=== PATIENT | male | born 1975 | race Caucasian/White ===

== ENCOUNTER 2017-04-10 18:52 | Emergency (ER) | payer BC ==
[2017-04-10 19:05] VITALS: BP 115/69
[2017-04-10] MEDS ORDERED: Ibuprofen TAB* 600 MG PO ONE (19:13)
--- NOTE | 2017-04-10 19:18 | UC ---
Skin Complaint HPI - HPI Summary HPI Summary: skin infection right shoulder and right lower abd x 5 days + pain and tenderness , redness and swelling no fever, no chills hx of MRSA - History of Current Complaint Chief Complaint: UCSkin Time Seen by Provider: 04/10/17 19:03 Stated Complaint: POSSIBLE STAPH INFECTIONS Hx Obtained From: Patient Onset/Duration: Sudden Onset, Lasting Days - 3, Still Present Timing: Constant Onset Severity: Moderate Current Severity: Moderate Location: Discrete - right shoulder / right lower abd Character: Swelling, Pain, Redness, Raised, Painful Aggravating Factor(s): Touch Alleviating Factor(s): Nothing Associated Signs & Symptoms: Positive: Negative. Negative: Fever, Chills - Allergy/Home Medications Allergies/Adverse Reactions: Allergies Allergy/AdvReac Type Severity Reaction Status Date / Time No Known Allergies Allergy Verified 04/10/17 18:58 Review of Systems Constitutional: Negative Eyes: Negative ENT: Negative Respiratory: Negative Is Patient Immunocompromised?: No All Other Systems Reviewed And Are Negative: Yes PMH/Surg Hx/FS Hx/Imm Hx - Additional Past Medical History Additional PMH: hx of MRSA Previously Healthy: Yes - Surgical History Surgical History: None - Family History Known Family History: Negative: Diabetes - Social History Alcohol Use: None Substance Use Type: None Smoking Status (MU): Current Every Day Smoker Type: Cigarettes Amount Used/How Often: 1-2 PPD - Immunization History Most Recent Influenza Vaccination: NOT YET 2016 Physical Exam Triage Information Reviewed: Yes Appearance: Well-Appearing, No Pain Distress, Well-Nourished Vital Signs: Initial Vital Signs Temp 98 F 04/10/17 18:59 Pulse 85 04/10/17 18:59 Resp 16 04/10/17 18:59 BP 115/69 04/10/17 18:59 Pulse Ox 98 04/10/17 18:59 Vital Signs Reviewed: Yes Eyes: Positive: Conjunctiva Clear ENT Exam: Normal ENT: Positive: Normal ENT inspection, Hearing grossly normal, Pharynx normal Neck exam: Normal Neck: Positive: Supple, Nontender, No Lymphadenopathy Respiratory: Positive: Chest non-tender, Lungs clear, Normal breath sounds Cardiovascular: Positive: RRR, No Murmur, Pulses Normal Musculoskeletal Exam: Normal Skin: Positive: Other - + small abscess right shoulder and right lower abd, + erythema, tender, Course/Dx - Diagnoses Provider Diagnoses: skin abscess Discharge - Discharge Plan Condition: Stable Disposition: HOME Prescriptions: Sulfamethox/Trimethoprim DS* [Bactrim DS 800/160 TAB*] 1 tab PO BID #20 tab Patient Education Materials: MRSA (Methicillin-Resistant Staphylococcus Aureus ) (ED), Abscess (ED) Referrals: No Primary Care Phys,NOPCP [Primary Care Provider] - If Needed
== END 2017-04-10 19:22 | disposition home or self-care (01) ==
LOC: UCCORT 18:52
DX: L02.413 Cutaneous abscess of right upper limb (principal); L02.211 Cutaneous abscess of abdominal wall; Z86.14 Personal history of Methicillin resistant Staphylococcus aureus infection; F17.210 Nicotine dependence, cigarettes, uncomplicated
CPT/HCPCS: 99202; A9270-GY; G0463

== ENCOUNTER 2017-10-21 12:40 | Emergency (ER) | payer BC ==
[2017-10-21 13:18] VITALS: BP 128/81
--- NOTE | 2017-10-21 13:42 | UC ---
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 Onset/Duration: Sudden Onset Skin Exposure Onset/Duration: Days Ago Onset Severity: Moderate Pain Intensity: 4 - Allergy/Home Medications Allergies/Adverse Reactions: Allergies Allergy/AdvReac Type Severity Reaction Status Date / Time No Known Allergies Allergy Verified 04/10/17 18:58 Review of Systems Constitutional: Negative Skin: Other - skin lesion in lower back Eyes: Negative ENT: Negative Respiratory: Negative Cardiovascular: Negative Gastrointestinal: Negative Genitourinary: Negative Motor: Negative Neurovascular: Negative Musculoskeletal: Negative Neurological: Negative Psychological: Negative All Other Systems Reviewed And Are Negative: Yes PMH/Surg Hx/FS Hx/Imm Hx - Additional Past Medical History Additional PMH: MRSA skin infections - Surgical History Surgical History: None - Family History Known Family History: Negative: Diabetes - Social History Alcohol Use: None Substance Use Type: None Smoking Status (MU): Heavy Every Day Tobacco Smoker Type: Cigarettes Amount Used/How Often: 1-2 PPD - Immunization History Most Recent Influenza Vaccination: NOT YET 2016 Physical Exam Triage Information Reviewed: Yes Appearance: No Pain Distress Vital Signs: Initial Vital Signs Temp 36.8 C 10/21/17 13:15 Pulse 70 10/21/17 13:15 Resp 16 10/21/17 13:15 BP 128/81 10/21/17 13:15 Pulse Ox 100 10/21/17 13:15 Eye Exam: Normal ENT Exam: Normal Dental Exam: Normal Neck exam: Normal Neck: Positive: 1 Respiratory Exam: Normal Cardiovascular Exam: Normal Abdominal Exam: Normal Musculoskeletal Exam: Normal Neurological Exam: Normal Psychological Exam: Normal Skin: Positive: significant lesion(s) - 2x3 cm scaly patchy macule with clear center and erythematous periphery Course/Dx - Diagnoses Provider Diagnoses: Tinea corporis Discharge - Sign-Out/Discharge Documenting (check all that apply): Discharge - Discharge Plan Condition: Stable Disposition: HOME Prescriptions: Clotrimazole/Betamethasone* [Lotrisone Cream*] 1 applic TOPICAL BID 10 Days #1 tube Referrals: No Primary Care Phys,NOPCP [Primary Care Provider] - Additional Instructions: apply the cream to affected area 2x daily for 10 days - Billing Disposition and Condition Condition: STABLE Disposition: HOME
== END 2017-10-21 14:21 | disposition home or self-care (01) ==
LOC: UCEAST 12:40
DX: B35.4 Tinea corporis (principal); F17.210 Nicotine dependence, cigarettes, uncomplicated
CPT/HCPCS: 99212; G0463

== ENCOUNTER 2017-11-08 11:51 | Emergency (ER) | payer BC ==
[2017-11-08 12:27] VITALS: BP 106/69
--- NOTE | 2017-11-08 12:39 | UC ---
Ear Complaint HPI - HPI Summary HPI Summary: R ear pain, pressure, reduced hearing. Used a q-tip on it 2 days ago and " pulled out a lot of wax" but hasn't been hearing right since. Has also had mild URI sx for about a week. Denies ear drainage or fever. - History of Current Complaint Chief Complaint: UCEar Stated Complaint: EAR COMPLAINT Time Seen by Provider: 11/08/17 12:28 Hx Obtained From: Patient Onset/Duration: Gradual Onset, Lasting Days Severity Initially: Mild Severity Currently: Mild Pain Intensity: 5 Aggravating Factors: FB Associated Signs/Symptoms: Positive: Hearing Loss - Allergies/Home Medications Allergies/Adverse Reactions: Allergies Allergy/AdvReac Type Severity Reaction Status Date / Time No Known Allergies Allergy Verified 11/08/17 12:24 Home Medications: Home Medications NK [No Home Medications Reported] 11/08/17 [History Confirmed 11/08/17] PMH/Surg Hx/FS Hx/Imm Hx Previously Healthy: Yes - Surgical History Surgical History: None - Family History Known Family History: Negative: Diabetes - Social History Alcohol Use: None Substance Use Type: None Smoking Status (MU): Heavy Every Day Tobacco Smoker Type: Cigarettes Amount Used/How Often: 1 ppd Cessation Counseling: Patient Advised to Stop - Immunization History Most Recent Influenza Vaccination: NOT YET 2017 Review of Systems Constitutional: Negative Skin: Negative Eyes: Negative ENT: Ear Ache Respiratory: Negative Cardiovascular: Negative Gastrointestinal: Negative Genitourinary: Negative Motor: Negative Neurovascular: Negative Musculoskeletal: Negative Neurological: Negative Psychological: Negative Is Patient Immunocompromised?: No All Other Systems Reviewed And Are Negative: Yes Physical Exam Triage Information Reviewed: Yes Appearance: Well-Appearing, No Pain Distress, Thin Vital Signs: Initial Vital Signs Temp 98.2 F 11/08/17 12:24 Pulse 77 11/08/17 12:24 Resp 18 11/08/17 12:24 BP 106/69 11/08/17 12:24 Pulse Ox 100 11/08/17 12:24 Vital Signs Reviewed: Yes Eye Exam: Normal Eyes: Positive: Conjunctiva Clear ENT: Positive: Hearing grossly normal, Pharynx normal, TMs normal - post flush R TM flat, gonsalez, intact, Other - R cerumen impaction Dental Exam: Other - edentulous Respiratory Exam: Normal Respiratory: Positive: Chest non-tender, Lungs clear, Normal breath sounds, No respiratory distress, No accessory muscle use Cardiovascular Exam: Normal Cardiovascular: Positive: RRR, No Murmur Musculoskeletal Exam: Normal Neurological Exam: Normal Neurological: Positive: Alert Psychological Exam: Normal Skin Exam: Normal Ear Complaint Course/Dx - Differential Dx/Diagnosis Provider Diagnoses: cerumen impaction Discharge - Sign-Out/Discharge Documenting (check all that apply): Discharge/Admit/Transfer - Discharge Plan Condition: Stable Disposition: HOME Patient Education Materials: Cerumen Impaction (ED) Referrals: No Primary Care Phys,NOPCP [Primary Care Provider] - Additional Instructions: Call or come back if symptoms worsen or you develop drainage. - Billing Disposition and Condition Condition: STABLE Disposition: HOME
== END 2017-11-08 12:52 | disposition home or self-care (01) ==
LOC: UCEAST 11:51
DX: H61.21 Impacted cerumen, right ear (principal); F17.210 Nicotine dependence, cigarettes, uncomplicated
CPT/HCPCS: 99211; G0463

== ENCOUNTER 2018-03-08 09:42 | Emergency (ER) | payer BC ==
--- NOTE | 2018-03-08 10:19 | ED ---
Upper Extremity Pain - HPI Summary HPI Summary: Pt presents w/ Lt shoulder pain since yesterday morning upon waking. Slept on this side. 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 01/18 pain now - achey at rest, lightening bolt into fingers w/ any movement. Possible weakness vs. pain limited movement. No radiation into jaw or neck and no chest pain, nausea, diaphoresis. Has not tried any remedies prior to arrival. No previous issues/pain here. - History of Current Complaint Chief Complaint: Redd Stated Complaint: LT SHOULDER PAIN Time Seen by Provider: 03/08/18 10:02 Hx Obtained From: Patient - Allergies/Home Medications Allergies/Adverse Reactions: Allergies Allergy/AdvReac Type Severity Reaction Status Date / Time No Known Allergies Allergy Verified 11/08/17 12:24 PMH/Surg Hx/FS Hx/Imm Hx Previously Healthy: Yes Endocrine/Hematology History: Denies: Hx Anticoagulant Therapy, Hx Blood Disorders, Hx Diabetes, Hx Thyroid Disease, Hx Anemia, Hx Unexplained Bleeding, Autoimmune Disease Cardiovascular History: Denies: Hx Hypertension, Hx Myocardial Infarction Musculoskeletal History: Denies: Hx Arthritis, Hx Orthopedic Injury Infectious Disease History: No Infectious Disease History: Reports: Hx of Known/Suspected MRSA Denies: Traveled Outside the [place] in Last 30 Days - Family History Known Family History: Positive: Other - cancer Negative: Diabetes - Social History 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 Negative: Edema Negative: Bruising Neurological: Other - as in HPI Psychological: Normal All Other Systems Reviewed And Are Negative: Yes Physical Exam Triage Information Reviewed: Yes Vital Signs On Initial Exam: Initial Vitals Temp Pulse Resp BP Pulse Ox 98.1 F 90 18 122/85 97 03/08/18 09:44 03/08/18 09:44 03/08/18 09:44 03/08/18 09:44 03/08/18 09:44 Vital Signs Reviewed: Yes Appearance: Positive: Well-Appearing, Pain Distress - appears uncomfortable, Thin Skin: Positive: Warm, Skin Color Reflects Adequate Perfusion, Dry - no erythema , no ecchymosis Eyes: Positive: EOMI ENT: Positive: Hearing grossly normal Respiratory/Lung Sounds: Positive: Breath Sounds Present Cardiovascular: Positive: Pulses are Symmetrical in both Upper and Lower Extremities Musculoskeletal: Positive: Limited @ - FROM shoulder however reports pain at 30 degrees w/ abduction and flexion; less pain w/ passive ROM; 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 Course/Dx - Diagnoses Provider Diagnoses: Tendonitis Discharge - Sign-Out/Discharge Documenting (check all that apply): Patient Departure - Discharge Plan Condition: Stable Disposition: HOME Patient Education Materials: Tendinitis (ED) Forms: *Work Release Referrals: [facility] [Outside] Additional Instructions: Rest, ice with gentle stretches You may also take ibuprofen with food alternating with acetaminophen as needed for pain You may try a topical analgesic such as biofreeze for pain as well Follow-up with PCP if pain persists or worsens past 1 week - call [facility] for appointment if you do not have a PCP *If you develop numbness, tingling or weakness, return to the ED - Billing Disposition and Condition Condition: STABLE Disposition: Home
[2018-03-08] MEDS ORDERED: Ibuprofen TAB* 600 MG PO ONE (10:37)
--- NOTE | 2018-03-08 10:50 | RAD ---
INDICATION: Atraumatic left shoulder pain COMPARISON: None TECHNIQUE: Routine frontal, Y and axial views were obtained. FINDINGS: The bony structures, joint spaces, and soft tissues are normal for age. IMPRESSION: NO ACUTE BONY FINDINGS
[2018-03-08 11:48] VITALS: BP 103/62
== END 2018-03-08 11:45 | disposition home or self-care (01) ==
LOC: ED 09:42
DX: M77.9 Enthesopathy, unspecified (principal)
CPT/HCPCS: 99285

== ENCOUNTER 2018-07-24 11:50 | Emergency (ER) | payer BC ==
--- NOTE | 2018-07-24 12:08 | ED ---
Influenza-Like Illness - HPI Summary HPI Summary: A 43 y/o male presents to the ED c/o flu-like symptoms reaching 5/10 in severity. According to the patient, he has been experiencing a right-sided frontal headache since , so he took OTC medications such as Advil, Tylenol, and Ibuprofen, however, nothing has alleviated the pain. He noted that he has not taken any pain medications since yesterday around 1899. The patient stated that he was "waking in a pool of sweat" since which is coupled with a cough. His cough is very rough and he has head and sinus congestion. He further noted that he has been experiencing aching myalgia and arthralgia. The patient thinks he has been running a fever. Patient is a smoker. - History of Current Complaint Chief Complaint: EDFluSymptoms Time Seen by Provider: 07/24/18 11:58 Hx Obtained From: Patient Onset/Duration: Lasting Days, Still Present Severity: Moderate - 5/10 Associated Signs & Symptoms: Fever, Myalgia, Cough, Headache - Allergy/Home Medications Allergies/Adverse Reactions: Allergies Allergy/AdvReac Type Severity Reaction Status Date / Time No Known Allergies Allergy Verified 11/08/17 12:24 PMH/Surg Hx/FS Hx/Imm Hx Endocrine/Hematology History: Denies: Hx Anticoagulant Therapy, Hx Blood Disorders, Hx Diabetes, Hx Thyroid Disease, Hx Anemia, Hx Unexplained Bleeding Cardiovascular History: Denies: Hx Hypertension, Hx Myocardial Infarction Musculoskeletal History: Denies: Hx Arthritis, Hx Orthopedic Injury - Surgical History Surgery Procedure, Year, and Place: PER PATIENT, NO PRIOR SURGERIES. Infectious Disease History: No Infectious Disease History: Reports: Hx of Known/Suspected MRSA Denies: Traveled Outside the [place] in Last 30 Days - Family History Known Family History: Positive: Other - cancer Negative: Diabetes - Social History Alcohol Use: None Hx Substance Use: Yes Substance Use Type: Reports: Excessive Caffeine Hx Tobacco Use: Yes Smoking Status (MU): Current Every Day Smoker Type: Cigarettes Amount Used/How Often: 1 ppd Review of Systems Positive: Fever, Skin Diaphoresis Positive: Cough, Other - HEAD AND SINUS CONGESTION. Positive: Myalgia, Other - ARTHRALGIA Positive: Headache All Other Systems Reviewed And Are Negative: Yes Physical Exam - Summary Physical Exam Summary: Appearance: The patient is well-nourished in no acute distress and in no acute pain. Skin: The skin is warm and dry and skin color reflects adequate perfusion. HEENT: The head is normocephalic and atraumatic. The pupils are equal and reactive. The conjunctivae are clear and without drainage. Nares are patent and without drainage. Mouth reveals moist mucous membranes and the throat is without erythema and exudate. The external ears are intact. The ear canals are patent and without drainage. The tympanic membranes are intact. Patient has nasal congestion. Neck: The neck is supple with full range of motion and non-tender. There are no carotid bruits. There is no neck vein distension. Respiratory: Chest is non-tender. Lungs are clear to auscultation and breath sounds are symmetrical and equal. Cardiovascular: Heart is regular rate and rhythm. There is no murmur or rub auscultated. There is no peripheral edema and pulses are symmetrical and equal. Abdomen: The abdomen is soft and non-tender. There are normal bowel sounds heard in all four quadrants and there is no organomegaly palpated. Musculoskeletal: There is no back tenderness noted. Extremities are non-tender with full range of motion. There is good capillary refill. There is no peripheral edema or calf tenderness elicited. Neurological: Patient is alert and oriented to person, place and time. The patient has symmetrical motor strength in all four extremities. Cranial nerves are grossly intact. Deep tendon reflexes are symmetrical and equal in all four extremities. Psychiatric: The patient has an appropriate affect and does not exhibit any anxiety or depression. Triage Information Reviewed: Yes Vital Signs On Initial Exam: Initial Vitals Temp Pulse Resp BP Pulse Ox 97.7 F 85 19 113/84 99 07/24/18 11:52 07/24/18 11:52 07/24/18 11:52 07/24/18 11:52 07/24/18 11:52 Vital Signs Reviewed: Yes Diagnostics - Vital Signs Vital Signs Temp Pulse Resp BP Pulse Ox 07/24/18 11:52 97.7 F 85 19 113/84 99 - Laboratory Lab Statement: Any lab studies that have been ordered have been reviewed, and results considered in the medical decision making process. Flu Symptom Course/Dx - Course Course Of Treatment: Mr. Frederick presented with flulike symptoms and was found to have influenza A. He was nontoxic in appearance and vitals were stable and will be treated with Tamiflu. - Diagnoses Provider Diagnoses: Influenza Discharge - Sign-Out/Discharge Documenting (check all that apply): Patient Departure - DISCHARGE - Discharge Plan Condition: Stable Disposition: HOME Prescriptions: Oseltamivir CAP* [Tamiflu CAP*] 75 mg PO BID #10 cap Patient Education Materials: Influenza (ED) Referrals: [facility] [Outside] - 3 Days [facility] [place] [facility] REFERRAL [Outside] - 3 Days Additional Instructions: FOLLOW UP WITH PRIMARY CARE PROVIDER IN 2-3 DAYS. TAKE TAMIFLU PRESCRIBED. RETURN TO ED FOR ANY NEW OR WORSENING SYMPTOMS. - Billing Disposition and Condition Condition: STABLE Disposition: Home - Attestation Statements Document Initiated by Deepika: Yes Documenting Scribe: Dustin Camargo Provider For Whom Deepika is Documenting (Include Credential): Felipe Perez MD Scribe Attestation: Dustin Diane scribed for Felipe Perez MD on 07/24/18 at 1426. Scribe Documentation Reviewed: Yes Provider Attestation: The documentation as recorded by the Dustin lamar accurately reflects the service I personally performed and the decisions made by Felipe guajardo MD Status of Scribe Document: Viewed
[2018-07-24 13:52] VITALS: BP 132/75
== END 2018-07-24 13:51 | disposition home or self-care (01) ==
LOC: ED 11:50
DX: J11.1 Influenza due to unidentified influenza virus with other respiratory manifestations (principal); R50.9 Fever, unspecified; R05 Cough; R51 Headache; F17.210 Nicotine dependence, cigarettes, uncomplicated
CPT/HCPCS: 99282

== ENCOUNTER 2021-05-08 16:31 | Inpatient (IN) ==
[2021-05-08 19:04] LABS: Hematocrit 46 % (42-52); Hemoglobin 15.6 g/dL (14.0-18.0); Mean Corpuscular HGB Conc 34 g/dL (31-36); Mean Corpuscular Hemoglobin 31 pg (27-31); Mean Corpuscular Volume 91 fL (80-94); Mean Platelet Volume 9.4 fL (7.4-10.4); Platelet Count 289 10^3/uL (150-450); Red Blood Count 5.02 10^6 /uL (4.18-5.48); Red Cell Distribution Width 16 % (10-15); White Blood Count 30.2 10^3/uL (3.5-10.8)
[2021-05-08 19:34] LABS: Albumin 3.7 g/dL (3.2-5.2); Albumin/Globulin Ratio 0.9 (1-3); Calcium 9.4 mg/dL (8.6-10.3); Globulin 4.3 g/dL (2-4); Potassium 3.8 mmol/L (3.5-5.0); Total Bilirubin 0.7 mg/dL (0.2-1.0)
[2021-05-08] MEDS ORDERED: cefTRIAXone 1 gm/50 mL NS BAG 1 GM/50 ML BAG IVPB ONE (19:56)
[2021-05-08] MEDS ORDERED: Lactated Ringers 1000 ml BAG 1,000 ML IV ONE (19:56)
[2021-05-08 20:21] LABS: Anisocytosis 1+
[2021-05-08 20:22] LABS: ABS Basophils 0.1 10^3/ul (0-0.2); ABS Monocytes 2.6 10^3/ul (0-0.8); ABS Neutrophils 26.4 10^3/ul (1.5-7.7); Eosinophil % 0.1 %; Lymphocyte % 3.5 %
[2021-05-08 20:23] LABS: Smudge Cells Present
[2021-05-08] MEDS ORDERED: cefTRIAXone 1 gm/50 mL NS BAG 1 GM/50 ML BAG IV ONE (21:01)
[2021-05-08] MEDS ORDERED: Levofloxacin 750 MG IVPREMIX 750 MG/150 ML BAG IVPB ONE (21:02)
[2021-05-08] MEDS ORDERED: Morphine 2 MG/ML SYRINGE IV PRN (22:13)
[2021-05-08] MEDS ORDERED: NS 0.9% 1000 ml BAG 1,000 ML IV SCH (22:15)
[2021-05-08 22:37] LABS: Urine Appearance Turbid; Urine Bilirubin Negative (Negative); Urine Blood 2+ (Negative); Urine Color Amber; Urine Glucose Negative (Negative); Urine Ketones Negative (Negative); Urine Nitrite Negative (Negative); Urine Protein 2+(100 mg/dL) (Negative); Urine Specific Gravity 1.013 (1.002-1.030); Urine Urobilinogen Negative (Negative)
[2021-05-08 22:49] LABS: Urine Bacteria 3+ (Absent); Urine Red Blood Cell 3+(>10/hpf) (Absent); Urine White Blood Cell 3+(>20/hpf) (Absent)
[2021-05-08 23:49] LABS: Rapid COVID-19 Molecular Undetected (Undetected)
[2021-05-09] MEDS ORDERED: fentaNYL 250 mcg/5 ml 50 MCG/ML 5 ml VIAL (250 MCG) ONE (06:50)
[2021-05-09] MEDS ORDERED: Lidocaine 2% PF 5 ML VIAL ONE (06:50)
[2021-05-09] MEDS ORDERED: Rocuronium 50 mg VIAL 10 mg/ml 5 ml VIAL (50 mg) ONE (06:50)
[2021-05-09] MEDS ORDERED: Midazolam 2 mg/2 ml VIAL 1 mg/ml 2 ml VIAL (2 mg) ONE (06:50)
[2021-05-09] MEDS ORDERED: Propofol 10 MG/ML 20 ML BTL ONE (06:50)
[2021-05-09] MEDS ORDERED: Iohexol 180 (CONTRAST) 10 ML SDV IV ONE (06:52)
[2021-05-09] MEDS ORDERED: HYDROmorphone 1 MG/1 ML SYRINGE IV PRN (07:30)
[2021-05-09] MEDS ORDERED: Acetaminophen IV 1 GM/100ML 100 ML IV ONE ×2 (07:30→08:31)
[2021-05-09] MEDS ORDERED: Naloxone 0.4 mg VIAL 0.4 mg/ml 1 ml VIAL IV PRN (07:30)
[2021-05-09] MEDS ORDERED: Ondansetron 4 mg VIAL 2 MG/ML 2 ml VIAL IV PRN (07:30)
[2021-05-09] MEDS ORDERED: Prochlorperazine 5 mg/ml 2 ml VIAL (10 mg) IV PRN (07:30)
[2021-05-09] MEDS ORDERED: DiMENhydriNATE IV 50 mg/ml 1 ml VIAL IV PUSH PRN (07:30)
[2021-05-09] MEDS ORDERED: fentaNYL 100 mcg/2 ml 50 MCG/ML VIAL IV PRN (07:30)
[2021-05-09] MEDS ORDERED: Phenylephrine 40 mcg/mL 10mL (400mcg) SYRINGE ONE (07:30)
[2021-05-09] MEDS ORDERED: Phenylephrine IV 10 MG/ML 1 ml VIAL ONE (07:45)
[2021-05-09] MEDS: Lactated Ringers 1000 ml BAG 1,000 ML IV SCH ×3 (08:31→22:27)
[2021-05-09 09:46] LABS: Hematocrit 36 % (42-52); Hemoglobin 12.4 g/dL (14.0-18.0); Mean Corpuscular HGB Conc 35 g/dL (31-36); Mean Corpuscular Hemoglobin 31 pg (27-31); Mean Corpuscular Volume 90 fL (80-94); Mean Platelet Volume 9.1 fL (7.4-10.4); Platelet Count 258 10^3/uL (150-450); Red Blood Count 3.99 10^6 /uL (4.18-5.48); Red Cell Distribution Width 15 % (10-15); White Blood Count 29.1 10^3/uL (3.5-10.8)
[2021-05-09 09:58] LABS: Potassium 3.7 mmol/L (3.5-5.0)
[2021-05-09 10:46] LABS: RBC Morphology Normal (Normal)
[2021-05-09 10:47] LABS: ABS Lymphocytes 0.7 10^3/ul (1.0-4.8); ABS Monocytes 1.5 10^3/ul (0-0.8); ABS Neutrophils 26.8 10^3/ul (1.5-7.7); Eosinophil % 0.1 %; Lymphocyte % 2.3 %
[2021-05-09] MEDS: cefTRIAXone 1 gm/50 mL NS BAG 1 GM/50 ML BAG IVPB SCH (22:28)
[2021-05-10 05:49] LABS: Hematocrit 35 % (42-52); Hemoglobin 11.9 g/dL (14.0-18.0); Mean Corpuscular HGB Conc 34 g/dL (31-36); Mean Corpuscular Hemoglobin 31 pg (27-31); Mean Corpuscular Volume 91 fL (80-94); Mean Platelet Volume 8.7 fL (7.4-10.4); Platelet Count 318 10^3/uL (150-450); Red Blood Count 3.91 10^6 /uL (4.18-5.48); Red Cell Distribution Width 15 % (10-15); White Blood Count 25.8 10^3/uL (3.5-10.8)
[2021-05-10 06:07] LABS: Albumin 2.7 g/dL (3.2-5.2); Albumin/Globulin Ratio 0.8 (1-3); Calcium 8.3 mg/dL (8.6-10.3); Globulin 3.3 g/dL (2-4); Potassium 3.6 mmol/L (3.5-5.0); Total Bilirubin 0.4 mg/dL (0.2-1.0)
[2021-05-10 07:08] LABS: ABS Basophils 0.1 10^3/ul (0-0.2); ABS Lymphocytes 1.4 10^3/ul (1.0-4.8); ABS Monocytes 2.3 10^3/ul (0-0.8); Eosinophil % 0.1 %; Lymphocyte % 5.5 %
[2021-05-10] MEDS: cefTRIAXone 1 gm/50 mL NS BAG 1 GM/50 ML BAG IVPB SCH (20:08)
[2021-05-11] MEDS: Lactated Ringers 1000 ml BAG 1,000 ML IV SCH ×2 (04:06→14:18)
[2021-05-11 07:20] LABS: Hematocrit 35 % (42-52); Hemoglobin 12.1 g/dL (14.0-18.0); Mean Corpuscular HGB Conc 35 g/dL (31-36); Mean Corpuscular Hemoglobin 31 pg (27-31); Mean Corpuscular Volume 90 fL (80-94); Mean Platelet Volume 8.2 fL (7.4-10.4); Platelet Count 371 10^3/uL (150-450); Red Blood Count 3.88 10^6 /uL (4.18-5.48); Red Cell Distribution Width 15 % (10-15); White Blood Count 15.8 10^3/uL (3.5-10.8)
[2021-05-11 07:38] LABS: Calcium 8.3 mg/dL (8.6-10.3); Potassium 3.7 mmol/L (3.5-5.0)
[2021-05-11 08:25] LABS: ABS Basophils 0.1 10^3/ul (0-0.2); ABS Eosinophils 0.1 10^3/ul (0-0.6); ABS Lymphocytes 1.8 10^3/ul (1.0-4.8); ABS Monocytes 1.5 10^3/ul (0-0.8); ABS Neutrophils 12.3 10^3/ul (1.5-7.7); Eosinophil % 0.9 %; Lymphocyte % 11.3 %
[2021-05-11 08:34] LABS: RBC Morphology Normal (Normal)
[2021-05-11] MEDS: cefTRIAXone 1 gm/50 mL NS BAG 1 GM/50 ML BAG IVPB SCH (21:04)
[2021-05-12] MEDS: Lactated Ringers 1000 ml BAG 1,000 ML IV SCH (02:38)
[2021-05-12 03:45] VITALS: BP 109/63
[2021-05-12 06:56] LABS: ABS Eosinophils 0.2 10^3/ul (0-0.6); ABS Lymphocytes 1.7 10^3/ul (1.0-4.8); ABS Monocytes 1.3 10^3/ul (0-0.8); ABS Neutrophils 11.4 10^3/ul (1.5-7.7); Eosinophil % 1.4 %; Hematocrit 36 % (42-52); Hemoglobin 12.4 g/dL (14.0-18.0); Lymphocyte % 11.3 %; Mean Corpuscular HGB Conc 34 g/dL (31-36); Mean Corpuscular Hemoglobin 31 pg (27-31); Mean Corpuscular Volume 90 fL (80-94); Mean Platelet Volume 8.2 fL (7.4-10.4); Platelet Count 417 10^3/uL (150-450); Red Blood Count 4.03 10^6 /uL (4.18-5.48); Red Cell Distribution Width 15 % (10-15); White Blood Count 14.7 10^3/uL (3.5-10.8)
[2021-05-12 07:18] LABS: Albumin 2.6 g/dL (3.2-5.2); Albumin/Globulin Ratio 0.8 (1-3); C Reactive Protein 158.24 mg/L (<8.01); Calcium 8.1 mg/dL (8.6-10.3); Globulin 3.4 g/dL (2-4); Potassium 3.8 mmol/L (3.5-5.0); Total Bilirubin 0.4 mg/dL (0.2-1.0)
== END 2021-05-12 14:00 | disposition home or self-care (01) | DRG 720 ==
LOC: ED 16:31 → SUATTDRO 22:06 → EDHOLD 22:06 → SSU 05-09 07:00 → EDHOLD 05-09 07:09 → SSU 05-09 09:10
PROVIDERS: ADMIT Hospitalist; ATTEND Hospitalist